=== PATIENT | male | born 1980 | race Caucasian/White ===

== ENCOUNTER 2024-06-16 11:49 | Emergency (ER) | payer OTHER, SELFPAY ==
--- NOTE | ~2024-06-16 | XR_ITS ---
EXAMINATION: XR knee LT min 4V DATE: 06/16/2024 12:10 INDICATION: Left knee pain. Fall. TECHNIQUE: 5 views of left knee were obtained. COMPARISON: None. FINDINGS: Bone alignment is normal. No fracture. There is a 15 x 6 mm sclerotic lesion in distal femo ral metaphysis. There is mild tricompartmental osteoarthritis. There is a small knee joint effusion. IMPRESSION: 1. Mild left knee osteoarthritis. 2. Small left knee joint effusion. 3. Small sclerotic lesion in distal femoral metaphysis. In the absence of known malignancy, this find ing is likely benign. Reviewed, dictated and finalized at location A. IMPRESSION: 1. Mild left knee osteoarthritis. 2. Small left knee joint effusion. 3. Small sclerotic lesion in distal femoral metaphysis. In the absence of known malignancy, this finding is likely benign.
--- NOTE | 2024-06-16 11:51 | ED.LOWEXIN ---
HPI - Extremity Injury (Lower) General Chief Complaint: Extremity Injury, Lower Stated Complaint: lt knee pain Time Seen by Provider: 06/16/24 11:50 Source: patient Mode of arrival: ambulatory Limitations: no limitations History of Present Illness HPI Narrative: Zachery is a 44-year-old male patient presenting to the clinic today with complaints of left knee pain. He reports he fell/trip on Wednesday and his knee went laterally. Has at abrasion to the lateral lower leg. Reports pain sharp and stabbing and all over the knee. Painful with walking, flexion and extension of the left knee. Has been taking ibuprofen without relief. Related Data Home Medications Medication Instructions Recorded Confirmed aspirin 81 mg chewable tablet 81 mg PO DAILY 06/16/24 06/16/24 atorvastatin 40 mg tablet 40 mg PO DAILY 06/16/24 06/16/24 [facility]16[facility] 06/16/24 Ultra Test strips) [facility]16[facility] 06/16/24 Ultra2 Meter) glyburide 5 mg tablet 5 mg PO DAILY 06/16/24 06/16/24 metformin 1,000 mg tablet 1,000 mg PO BID 06/16/24 06/16/24 metoprolol tartrate 50 mg tablet 50 mg PO BID 06/16/24 06/16/24 semaglutide 0.25 mg or 0.5 mg (2 0.5 mg subcut WEEKLY 06/16/24 06/16/24 mg/3 mL) subcutaneous pen injector (Ozempic) sertraline 50 mg tablet 50 mg PO DAILY 06/16/24 06/16/24 Allergies Allergy/AdvReac Type Severity Reaction Status Date / Time No Known Allergies Allergy Verified 06/16/24 11:57 Review of Systems Review of Systems: Pertinent positives per HPI. Patient denies any fever, chills, rash, headache, visual changes, dizziness, cough, runny nose, sore throat, shortness of breath, chest pain, palpitations, nausea, vomiting, diarrhea, constipation, abdominal pain, or any urinary issues. PMFSH Comments At the time of my signature, I reviewed and agree with the nursing past medical, surgical, social, and family history. There is no relevant family history pertinent to the patient complaint. Exam Narrative: General: Well-developed, well nourished, in no apparent distress Head: Normocephalic, atraumatic. Cardio: Regular rate and rhythm, s1 and s2 normal, no murmur appreciated. Resp: Clear to auscultation bilaterally, no rhonchi, rales, wheezing or rubs. Musculoskeletal: No deformity, tender to palpation over the anterior knee joint, pain with valgus, varus, anterior drawer, and posterior drawer testing however the no laxity was seen, limited range of motion due to pain, very minimal swelling when compared to the right knee, muscle strength strong and equal, peripheral pulse strong, no edema, no cyanosis, limping gait and station Course Course Emergency Course: Portions of this record may have been created with voice recognition software. Level of Care: Express Care Visit Vital Signs Vital signs: Vital signs reviewed MDM - Extremity Injury (Lower) MDM Narrative Medical decision making narrative: At the time of visit patient is resting comfortably on the exam table. Patient appears to be nontoxic. Diagnostics: Left knee x-ray was performed-shows small knee joint effusion, mild osteoarthritis, possible lytic lesion to the distal femur likely benign Plan: I suspect patient has acute injured derangement of the left knee, acute knee pain, and osteoarthritis. Offered crutches however patient has crutches at home. Enrike wrap was applied in the clinic today. Supportive measures were discussed with the patient and they voiced understanding discharge instructions and agrees to treatment plan. Return precautions reviewed Differential Diagnosis Differential diagnosis: Likely acute internal derangement of knee and other (Knee sprain, knee fracture, osteoarthritis) Imaging Data Radiologist's impression: ITS Impressions Knee X-Ray 06/16/24 12:20 IMPRESSION: 1. Mild left knee osteoarthritis. 2. Small left knee joint effusion. 3. Small sclerotic lesion in distal femoral m
[2024-06-16 11:56] VITALS: BP 143/87; PULSE 99; RESP 16; TEMP 36.4; O2SAT 99
== END 2024-06-16 12:42 | disposition home or self-care (01) ==
PROVIDERS: Emergency Provider Nurse Practitioner Family; PCP Physician Assistant
DX: M25.462 Effusion, left knee (principal); M23.92 Unspecified internal derangement of left knee; M17.12 Unilateral primary osteoarthritis, left knee; E78.00 Pure hypercholesterolemia, unspecified; I10 Essential (primary) hypertension; E11.9 Type 2 diabetes mellitus without complications; Z79.84 Long term (current) use of oral hypoglycemic drugs
CPT/HCPCS: 73564; 99203; G0463